=== PATIENT | female | born 1970 | race Hispanic/Latino ===

== ENCOUNTER 2025-01-18 13:52 | Emergency (ER) | payer OTHER ==
[~2025-01-18] VITALS: Ht 160 cm; Wt 62.1 kg
[2025-01-18] MEDS ORDERED: IOPAMIDOL 370 MG/ML 100 ML INFUS..BTL INJ ONE (14:19)
[2025-01-18] MEDS: SODIUM CHLORIDE 0.9% 1000ML 1,000 ML IV ONE (14:22)
[2025-01-18] MEDS: FAMOTIDINE 20 MG/2 ML VIAL IV STA (14:22)
[2025-01-18 23:00] VITALS: PULSE 62; RESP 16; TEMP 98.2; O2SAT 99
== END 2025-01-18 23:28 | disposition other institution (70) ==
LOC: FSED 13:58
DX: R18.8 Other ascites (principal); D64.9 Anemia, unspecified; R10.11 Right upper quadrant pain; C78.7 Secondary malignant neoplasm of liver and intrahepatic bile duct; C78.6 Secondary malignant neoplasm of retroperitoneum and peritoneum; K86.9 Disease of pancreas, unspecified; N83.9 Noninflammatory disorder of ovary, fallopian tube and broad ligament, unspecified; Z85.07 Personal history of malignant neoplasm of pancreas
CPT/HCPCS: 74177; 80053; 81003; 85025; 99284; J7030; Q9967